=== PATIENT | male | born 1975 | race Caucasian/White ===

== ENCOUNTER → 2017-08-13 | Outpatient (CLI) | payer BC | END | disposition home or self-care (01) | LOC: CDC 12:21 | DX: Z01.810 Encounter for preprocedural cardiovascular examination (principal); D17.1 Benign lipomatous neoplasm of skin and subcutaneous tissue of trunk; R00.1 Bradycardia, unspecified; I45.4 Nonspecific intraventricular block; R94.31 Abnormal electrocardiogram [ECG] [EKG] | CPT/HCPCS: 93000 ==

== ENCOUNTER 2017-09-04 11:33 | Day surgery (SDC) | payer BC ==
[~2017-09-04] VITALS: Ht 180.3 cm; Wt 90.7 kg
[2017-09-04 12:22] VITALS: BP 145/83
[2017-09-04] MEDS ORDERED: ONDANSETRON HCL8 MG PO (17:44)
[2017-09-04] MEDS ORDERED: DILAUDID4 MG PO (17:44)
[2017-09-04] MEDS ORDERED: COLACE100 MG PO (17:44)
[2017-09-04 18:39] VITALS: BP 136/77
[2017-09-04 19:01] VITALS: BP 134/80
== END 2017-09-04 19:13 | disposition home or self-care (01) ==
LOC: SDC 11:33
PROC: 0JB70ZZ Excision of Back Subcutaneous Tissue and Fascia, Open Approach (ICD-10-PCS; principal; 2017-09-04)
DX: D17.1 Benign lipomatous neoplasm of skin and subcutaneous tissue of trunk (principal); F41.9 Anxiety disorder, unspecified; R94.31 Abnormal electrocardiogram [ECG] [EKG]; G47.30 Sleep apnea, unspecified; Z98.84 Bariatric surgery status
CPT/HCPCS: 88304; J0131; J0330; J0690; J1100; J2250; J3010; S0020